=== PATIENT | female | born 1985 | race Caucasian/White ===

== ENCOUNTER 2020-06-16 23:18 | Emergency (ER) | payer OTHER ==
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
[2020-06-16] MEDS ORDERED: DIPH,PERTUS(ACELL)TETVAC-LF 0.5 ML VIAL IM ONE (23:24)
[2020-06-16] MEDS ORDERED: MORPHINE SULFATE 4 MG/ML SYRINGE IV STA (23:24)
[2020-06-16 23:25] VITALS: BP 115/85; PULSE 104; RESP 18; TEMP 98.3
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
--- NOTE | 2020-06-16 23:43 | XR ---
EXAMINATION TYPE: XR pelvis AP view DATE OF EXAM: 06/16/2020 COMPARISON: NONE HISTORY: Pain TECHNIQUE: Single view FINDINGS: Pelvic ring is intact. Proximal femurs and hip joints are intact. Sacroiliac joints are int act. Hip joint spaces are fairly normal. IMPRESSION: Negative exam. No fracture.
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
[2020-06-17] MEDS ORDERED: MORPHINE SULFATE 4 MG/ML SYRINGE IV STA (00:01)
[2020-06-17] MEDS ORDERED: ONDANSETRON 4 MG/2 ML VIAL IVP STA (00:01)
[2020-06-17 00:05] LABS: Basophils # (A) 0.1 k/uL (0-0.2); Basophils % (A) 0 %; Eosinophils # (A) 0.1 k/uL (0-0.7); Eosinophils % (A) 1 %; HCT 35.7 % (34.0-46.0); HGB 12.2 gm/dL (11.4-16.0); Lymphocytes # (A) 2.9 k/uL (1.0-4.8); Lymphocytes % (A) 18 %; MCH 30.7 pg (25.0-35.0); MCHC 34.2 g/dL (31.0-37.0); MCV 89.8 fL (80.0-100.0); Mean Platelet Volume 6.7; Monocytes # (A) 0.4 k/uL (0-1.0); Monocytes % (A) 3 %; Neutrophils # (A) 12.6 k/uL (1.3-7.7); Neutrophils % (A) 78 %; Platelet Count 290 k/uL (150-450); RBC 3.97 m/uL (3.80-5.40); RDW 12.2 % (11.5-15.5); WBC 16.2 k/uL (3.8-10.6)
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
[2020-06-17 00:18] LABS: Glucose,Whole Blood 229 mg/dL (75-99)
[2020-06-17 00:19] LABS: Prothrombin Time 10.6 sec (9.0-12.0)
[2020-06-17 00:21] LABS: Partial Thromboplastin Time 20.3 sec (22.0-30.0)
[2020-06-17 00:23] LABS: ALT 445 U/L (4-34); AST 722 U/L (14-36); African American GFR (CKD) >90 (>60 ml/min/1.73 sqM); Albumin 3.3 g/dL (3.5-5.0); Alkaline Phosphatase 64 U/L (38-126); Anion Gap 11 mmol/L; Blood Urea Nitrogen 10 mg/dL (7-17); Calcium 8.1 mg/dL (8.4-10.2); Carbon Dioxide 20 mmol/L (22-30); Chloride 105 mmol/L (98-107); Glucose 240 mg/dL (74-99); Non-African American GFR(CKD) >90 (>60 ml/min/1.73 sqM); Potassium 3.2 mmol/L (3.5-5.1); Sodium 136 mmol/L (137-145); Total Bilirubin 0.2 mg/dL (0.2-1.3); Total Protein 5.6 g/dL (6.3-8.2)
[2020-06-17 00:25] LABS: Alcohol 136 mg/dL
== END 2020-06-17 00:50 | disposition other institution (70) ==
LOC: EC 23:18
DX: S32.018A Other fracture of first lumbar vertebra, initial encounter for closed fracture (principal); S32.028A Other fracture of second lumbar vertebra, initial encounter for closed fracture; S36.116A Major laceration of liver, initial encounter; S27.0XXA Traumatic pneumothorax, initial encounter; S01.512A Laceration without foreign body of oral cavity, initial encounter; F10.129 Alcohol abuse with intoxication, unspecified; Z23 Encounter for immunization; J45.909 Unspecified asthma, uncomplicated; Z79.51 Long term (current) use of inhaled steroids; M25.511 Pain in right shoulder; Y92.410 Unspecified street and highway as the place of occurrence of the external cause; V43.53XA Car driver injured in collision with pick-up truck in traffic accident, initial encounter; Y92.488 Other paved roadways as the place of occurrence of the external cause; Y93.89 Activity, other specified
CPT/HCPCS: 36415 ×2; 93005; 86900; 86901; 80053; 83605; 84484; 85025; 85610; 85730; 86850; 80320; 72170; 71045; 72125; 70450; 71260; 74177; 90715; 99285; 96374; 96375; 96376; 90471; J2270 ×2; J2405; Q9967